=== PATIENT | female | born 1980 | race Caucasian/White ===

== ENCOUNTER 2021-08-12 09:04 | Outpatient (CLI) | payer OTHER, SELFPAY ==
--- NOTE | 2021-08-12 09:15 | FL_ITS ---
Final Report Patient: DARIN STRONG Facility:?[facility] Patient ID:?[id number] Site Patient ID:?[id number]. Site :?[id number] Study:?XRay Hip Right INJJECTION (DR MONREAL TO READ)-08/12/2021 10:33:11 AM Ordering Physician:Ling Desir Final Report: INDICATION: Right hip pain. COMPARISON: None. PROCEDURE: Following a detailed discussion regarding the risks, benefits, and alternatives to the procedure, both written and verbal informed consent were obtained. The patient was positioned supine on the fluoroscopy table. An appropriate site for needle entry was marked on the skin using a metal forceps and fluoroscopy. A timeout was performed according to protocol. The skin was prepped and draped in the usual sterile fashion. 1% lidocaine was administered for local anesthesia. Under fluoroscopic guidance, a 22 gauge needle was advanced into the right hip joint. Needle position was confirmed with the injection of a small amount of iodinated contrast. A mixture of 80 milligrams of Depo-Medrol and 5 cc of 1 percent lidocaine ws injected into the joint. The needle was removed and hemostasis was achieved at the skin puncture site. Patient tolerated the procedure well without immediate complication. Fluoroscopy time: 16 seconds. One images were stored. IMPRESSION: Successful uneventful fluoroscopic-guided right hip therapeutic injection. Dictated by Harrison Monreal MD @ 08/12/2021 10:39:48 AM (Electronic Signature)
== END 2021-08-12 09:05 | disposition home or self-care (01) ==
LOC: RAD 09:06
PROVIDERS: PCP Family Medicine; Visit Provider Orthopaedic Surgery Sports Medicine
DX: M25.551 Pain in right hip (principal); M16.11 Unilateral primary osteoarthritis, right hip
CPT/HCPCS: 20610; 77002; Q9966

== ENCOUNTER 2021-10-01 07:51 | Outpatient (CLI) | payer OTHER, SELFPAY ==
--- NOTE | 2021-10-01 08:15 | CRLHL7_ITS ---
For Patients: As a result of the Century Cures Act, medical imaging exams and procedure reports are released immediately into your electronic medical record. You may view this report before your referring provider. If you have questions, please contact your health care provider. Indication: LT HIP OSTEOARTHRITIS Procedure : Informed consent was obtained. The site was marked. Time-out was performed. The skin of the left hip was cleansed with ChloraPrep. A sterile drape was placed. 8 cc of 1 percent lidocaine was administered for superficial anesthesia. Subsequently a 22 gauge spinal needle was introduced into the left hip joint under intermittent fluoroscopic guidance. Injection of 7 cc 1 percent lidocaine and 2 cc of 40 milligrams/cc Depo-Medrol then performed. The needle was removed and hemostasis achieved with direct pressure. A dressing was placed. The patient tolerated the procedure well without immediate complication. Total fluoroscopy time 22 seconds. Impression: Successful fluoroscopically guided left hip injection with 80 milligrams Depo-Medrol. Dictated by Osman Ramirez MD @ 10/01/2021 9:11:03 AM (Electronically Signed)
== END 2021-10-01 07:52 | disposition home or self-care (01) ==
LOC: RAD 07:52
PROVIDERS: PCP Family Medicine; Visit Provider Orthopaedic Surgery Sports Medicine
DX: M16.12 Unilateral primary osteoarthritis, left hip (principal)
CPT/HCPCS: 20610; 77002; J1030; Q9966

== ENCOUNTER 2021-12-29 16:27 | Outpatient (CLI) | payer OTHER, SELFPAY | END 2021-12-29 16:28 | disposition home or self-care (01) | PROVIDERS: PCP Family Medicine; Visit Provider Family Medicine | DX: S49.92XA Unspecified injury of left shoulder and upper arm, initial encounter (principal); V43.52XA Car driver injured in collision with other type car in traffic accident, initial encounter; Y92.410 Unspecified street and highway as the place of occurrence of the external cause | CPT/HCPCS: A0425; A0427 ==

== ENCOUNTER 2021-12-29 16:55 | Emergency (ER) | payer OTHER, SELFPAY ==
[2021-12-29] VITALS (14 sets, daily range): BP systolic 126–143; BP diastolic 67–98; PULSE 63–85; TEMP 36.6; O2SAT 95–99; BMI 20.6
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
[2021-12-29] MEDS: KETOROLAC 15 MG/ML inj IVP (18:21)
== END 2021-12-29 19:06 | disposition home or self-care (01) ==
PROVIDERS: Emergency Provider Family Medicine; PCP Family Medicine
DX: S20.212A Contusion of left front wall of thorax, initial encounter (principal); S70.12XA Contusion of left thigh, initial encounter; S70.11XA Contusion of right thigh, initial encounter; V43.52XA Car driver injured in collision with other type car in traffic accident, initial encounter; Y93.9 Activity, unspecified; Y99.9 Unspecified external cause status
CPT/HCPCS: 71250; 72170; 96374; 99284; J1885

== ENCOUNTER 2022-02-02 07:28 | Outpatient (CLI) | payer OTHER, SELFPAY | END 2022-02-02 07:29 | disposition home or self-care (01) | LOC: INJ CL 07:29 | PROVIDERS: PCP Family Medicine; Visit Provider Family Medicine | DX: M16.12 Unilateral primary osteoarthritis, left hip (principal); M25.552 Pain in left hip | CPT/HCPCS: 20610; 77002; J0702; Q9966 ==

== ENCOUNTER 2024-05-04 23:15 | Outpatient (CLI) | payer OTHER, SELFPAY | END 2024-05-04 23:16 | disposition home or self-care (01) | LOC: AMB 05-07 10:38 | PROVIDERS: PCP Family Medicine; Visit Provider Emergency Medicine | DX: T43.592A Poisoning by other antipsychotics and neuroleptics, intentional self-harm, initial encounter (principal); Y92.039 Unspecified place in apartment as the place of occurrence of the external cause | CPT/HCPCS: A0425; A0427 ==

== ENCOUNTER 2024-05-04 23:34 | Emergency (ER) | payer OTHER, SELFPAY ==
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
--- OUTSIDE RECORDS SUMMARY | 2024-05-04 23:36 | XMS_ITS | Clinical Summary ---
Author Organization [facility] Address [address] [place] [address] Care Team Providers Care Director Of Reservations Name Role Phone Unavailable Primary Care Provider Unavailabl e Source Comments Patient records contain information from all sites at [facility]. For routine questions regarding patient records, call [phone] during business hours, M-F 8:00 AM - 5:00 PM Central Time. Record requests for emergency care only can be directed to [phone] at any time.[facility] Allergies Active Allergy Reactions Criticality Noted Date Comments Amoxicillin Hives only, no other systemic symptoms,Hives (Reselect Reaction) 10/26/2022 Penicillin allergy skin testing is negative on 10/26/22. Avoid amoxicillin, ampicillin, and cephalosporins. May use other penicillins. See allergy note 10/26/22 for surgical option. Penicillin allergy skin testing is negative on 10/26/22. Avoid amoxicillin, ampicillin, and cephalosporins. May use other penicillins. See allergy note 10/26/22 for surgical option. Aspirin Hives (Reselect Reaction) 06/14/2006 Cephalexin Hives only, no other systemic symptoms,Hives (Reselect Reaction) 12/14/2010 Penicillin allergy skin testing is negative on 10/26/22. Avoid amoxicillin, ampicillin, and cephalosporins. May use other penicillins. See allergy note 10/26/22 for surgical option. Penicillin allergy skin testing is negative on 10/26/22. Avoid amoxicillin, ampicillin, and cephalosporins. May use other penicillins. See allergy note 10/26/22 for surgical option. Medications cholecalciferol (VITAMIN D3) 50 mcg (2,000 Unit) capsule Take 2,000 Units by mouth daily. 2 Active albuterol 90 mcg/actuation inhaler Inhale 2 puffs 4 (four) times a day as needed. 2 Active celecoxib (CeleBREX) 200 mg capsule Take 1 capsule (200 mg total) by mouth 2 (two) times a day. 60 capsule 11/08/2022 9:49 AM CDT 3 Active acetaminophen (TYLENOL) 500 mg tablet Take 2 tablets (1,000 mg total) by mouth every 6 (six) hours as needed for pain (Do not exceed 4000 mg per day from all sources.). 100 tablet 2 3 Active Additional Information Patient taking differently:1,000 mg oralAs needed, pain, Do not exceed 4000 mg per day from all sources., Reported on 04/11/2023 aspirin 81 mg chewable tablet Chew 1 tablet (81 mg total) 2 (two) times a day with meals for 42 days. Recommended to minimize risk of blood clot. 108 tablet 01/05/2023 2:24 PM PRINCIPAL SECRETARY 3 Active oxyCODONE (ROXICODONE) 5 mg immediate release tabletIndicatio ns:Acute Pain Exception Take 1 tablet (5 mg total) by mouth every 4 (four) hours as needed for severe pain or score 7-10 of 10 Indication: Acute Pain Exception. 30 tablet 01/05/2023 2:24 PM PRINCIPAL SECRETARY 3 Active traMADoL (ULTRAM) 50 mg tabletIndicatio ns:Acute Pain Exception Take 1 tablet (50 mg total) by mouth every 6 (six) hours as needed for moderate pain or score 4-6 of 10 Indications: Acute Pain Exception. 20 tablet 01/05/2023 2:24 PM PRINCIPAL SECRETARY 3 Active prochlorperazin e (COMPAZINE) 5 mg tablet Take 1 tablet (5 mg total) by mouth every 6 (six) hours as needed for nausea or vomiting. 20 tablet 01/05/2023 2:24 PM PRINCIPAL SECRETARY 3 Active LORazepam (ATIVAN) 0.5 mg tablet Take 0.5 mg by mouth at bedtime as needed. 4 Active gabapentin (NEURONTIN) 300 mg capsule Take 1 capsule by mouth at bedtime. Hasn't started yet 04-11-23 4 Active azithromycin (ZITHROMAX) 500 mg tablet Take 500 mg by mouth as needed. Prior to dental 3 Active minocycline (MINOCIN,DYNACI N) 100 mg capsule Take 100 mg by mouth every 12 (twelve) hours. 4 Active clindamycin (CLEOCIN T) 1 % gel Apply topically 2 (two) times a day. 4 Active citalopram (CeleXA) 10 mg tablet Take 20 mg by mouth daily. 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, 1994 Nicotine Dependence Unspecified 12/03/2008 Anxiety Generalized Disorder 06/14/2006 Family History Medical History Relation Name Comments Asthma Father Travis Diabetes Father Travis Hyperlipidemia Father Travis Hypertension Father Travis Arthritis Mother Sofía Hyperlipidemia Mother Sofía Hypertension Mother Sofía Lymphoma Mother Sofía Relation Name Status Comments Father Travis Mother Sofía Social History Tobacco Use Types Packs/Day Years Used Date Smoking Tobacco: Former Cigarettes 0.5 25.5 0 02/14/1997 - 08/23/2022 Smokeless Tobacco: Never Tobacco Cessation:Counseling Given: Not Answered Alcohol Use Standard Drinks/Week Comments Yes 4 (1 standard drink = 0.6 oz pur e alcohol) Humiliation, Afraid, Rape, and Kick questionnair e Answer Date Recorded Within the last year, have y ou been afraid of your partner or ex-partner? No 07/26/2022 Within the last year, have y ou been humiliated or emotionally abused in other ways by your partner or ex-partner? No Within the last year, have y ou been kicked, hit, slapped, or otherwise physically hurt by your partner or ex-partner? No 07/26/2022 Within the last year, have y ou been raped or forced to have any kind of sexual activity by your partner or ex-partner? No 07/26/2022 Overall Financial Resource Strain (CARDIA) Answe r Date Recorded How hard is it for you to pa y for the very basics like food, housing, medical care, and heating? Not hard at all 07/26/2022 Exercise Vital Sign Answer Date Recorde d On average, how many days pe r week do you engage in moderate to strenuous exercise (like a brisk walk)? Patient declined On average, how many minutes do you engage in exercise at this level? Patient declined 07/26/2022 Hunger Vital Sign Answer Date Recorded Within the past 12 months, y ou worried that your food would run out before you got the money to buy more. Never true 07/27/19 Within the past 12 months, t he food you bought just didn't last and you didn't have money to get more. Never true 07/26/2022 PRAPARE - Transportation Answer Date Re corded In the past 12 months, has l ack of transportation kept you from medical appointments or from getting medications? No 07/15 In the past 12 months, has l ack of transportation kept you from meetings, work, or from getting things needed for daily living? No 07/26/2022 Nutrition Answer Date Recorded Nutrition: EVOO Fat Source Unknown 07/26 On average, how many serving s of fruits and vegetables do you eat per day (serving size is equal to 1 cup or approximately the size of a tennis ball)? 3-5 07/26/2022 Dental Answer Date Recorded Dental: Regular Dentist Yes 07/27/19 Employment Answer Date Recorded Employment status Working with temporary restric tions 07/26/2022 Housing Stability Answer Date Recorded What is your living situation today? I have a [facility] place to live 07/26/2022 Comments No Sex and Gender Information Value Date Recorded Sex Assigned at Female 07/26/2022 7:48 PM CDT Legal Sex Female 3:43 PM PRINCIPAL SECRETARY Gender Identity Female 07/26/2022 7:48 PM CDT Sexual Orientation Straight 07/26/2022 7: 48 PM CDT Last Filed Vital Signs Vital Sign Reading Time Taken Comments Blood Pressure 123/86 01/05/2023 3:00 PM PRINCIPAL SECRETARY Pulse 81 01/05/2023 3:00 PM PRINCIPAL SECRETARY Temperature 36.7 C (98.1 F) 01/05/2023 12:00 PM PRINCIPAL SECRETARY Respiratory Rate 12 01/05/2023 1:00 PM PRINCIPAL SECRETARY Oxygen Saturation 91% 01/05/2023 3:00 PM PRINCIPAL SECRETARY Inhaled Oxygen Concentration - - Weight 58.9 kg (129 lb 13.6 oz) 01/05/2023 6:15 AM PRINCIPAL SECRETARY Height 163.5 cm (5' 4.37) 01/05/2023 6:15 AM CS T Body Mass Index 22.03 01/05/2023 6:15 AM PRINCIPAL SECRETARY Plan of Treatment Health Maintenance Due Date Last Done Comments CT Colonography 1978 Cologuard 1978 Colonoscopy 1978 Colorectal Cancer Screening 1978 FIT 1978 HIV Screening 1978 Hepatitis C Screening 1978 Lipid (Cholesterol) Screening 1978 IPV Vaccines (3 of 3 - 4-dose series) 10/29/1983 04/28/1983, 04/24/1980 Hepatitis B Vaccines (1 of 3 - 19+ 3-dose series) 1997 DTaP,Tdap,and Td Vaccines (2 - Td or Tdap) 10/01/2020 10/01/2010 COVID-19 Vaccine ( season) 2023 02/10/2022, 03/02/2021, 08/28/2020, Additional history exists Influenza Vaccine (#1) 2023 , 11/04/2020, 11/07/2019 Depression Screening (Annual PHQ-2) 02/15/2024 Mammogram 08/30/2024 08/31/2023, 08/14, 11/03/2020, Additional history exists Fasting Glucose for Diabetes Screening 04/05/2026 04/05/2023, 12/31/2022, 10/26/2022, Additional history exists HPV Vaccines Aged Out No longer eligi ble based on patient's age to complete this topic Pneumococcal vaccine (0-49 years) Aged Out No longer eligible based on patient's age to complete this topic Medical Devices Implanted Type Area [employer] Trainee Device Identifier Shelf Expiration Date Model / Serial / Lot Shll Acet Trd Ii Mhl 52e - [id number] Implanted:Qty : 1 on 11/08/2022 by Walker Main M.D. at [facility] Hip Implant Right: Hip Caulfield 09/22/2027 709-04-52 E / / [id number] Lnr X3 Sangeetha 40 - [id number] Implanted:Qty : 1 on 11/08/2022 by Walker Main M.D. at [facility] Hip Implant Right: Hip Caulfield 09/12/2027 723-00-40 E / / [id number] Hip Stm Ins Hofst Sz2 36x99 - [id number] Implanted:Qty : 1 on 11/08/2022 by Walker Main M.D. at [facility] Hip Implant Right: Hip Caulfield 06/16/2027 3614-8929 / / [id number] Scrw Hex 6.5x20 - [id number] Implanted:Qty : 1 on 11/08/2022 by Walker Mian M.D. at [facility] Hip Implant Right: Hip Edmundo 07/16/2027 0046-9916 / / [id number] Scrw Hex 6.5x15 - [id number] Implanted:Qty : 1 on 11/08/2022 by Walker Main M.D. at [facility] Hip Implant Right: Hip Caulfield 05/30/2027 1929-5594 / / [id number] Hip Stm Slv V40 +0 - [id number] Implanted:Qty : 1 on 11/08/2022 by Walker Main M.D. at [facility] Hip Implant Right: Hip Edmundo 08/30/2027 6519-T-10 0 / / [id number] Fem Hd Blx +0x40 - [id number] Implanted:Qty : 1 on 11/08/2022 by Walker Main M.D. at [facility] Hip Implant Right: Hip Caulfield 09/17/2027 6519-1-04 0 / / [id number] Shll Acet Trd Chl 52e - [id number] Implanted:Qty : 1 on 01/05/2023 by Walker Main M.D. at [facility] Hip Implant Left: Hip Caulfield [id number] 08/31/2027 702-04-52 E / / [id number] Scrw Hex 6.5x20 - [id number] Implanted:Qty : 1 on 01/05/2023 by Walker Main M.D. at [facility] Hip Implant Left: Hip Edmundo 08/29/2027 8587-4394 / / [id number] Hip Stm Ins Hofst Sz2 36x99 - [id number] Implanted:Qty : 1 on 01/05/2023 by Walker Main M.D. at [facility] Hip Implant Left: Hip Edmundo 09/23/2027 8586-5494 / / [id number] Fem Hd Blx +0x40 - [id number] Implanted:Qty : 1 on 01/05/2023 by Walker Main M.D. at [facility] Hip Implant Left: Hip Caulfield 10/30/2027 6519-1-04 0 / / [id number] Hip Stm Slv V40 +4 - [id number] Implanted:Qty : 1 on 01/05/2023 by Walker Main M.D. at [facility] Hip Implant Left: Hip Edmundo 11/02/2027 6519-T-20 4 / / [id number] Lnr X3 Sangeetha 40 - [id number] Implanted:Qty : 1 on 01/05/2023 by Walker Main M.D. at [facility] Hip Implant Left: Hip Edmundo 11/04/2027 723-00-40 E / / [id number] Knee Implant-1995 Implanted: (Quantity not on file) Knee Implant Left: Knee Description:Patient stated o nly screws Procedures Procedure Name Priority Date/Time Associated Diagnosis Comments BASIC METABOLIC PANEL, S/P Routine 12/31/2022 9:50 AM PRINCIPAL SECRETARY Primary Osteoarthritis Hip Left Preoperative Exam from Last 3 Months or Most Recently Relevant to Health Maintenance Results * Basic Metabolic Panel (12/31/2022 9:50 AM PRINCIPAL SECRETARY) Potassium, S 4.7 3.6 - 5.2 mmol/L 12/31/2022 10:52 AM PRINCIPAL SECRETARY DTL Sodium, S 138 135 - 145 mmol/L 12/31/2022 10:52 AM PRINCIPAL SECRETARY DTL Chloride, S 100 98 - 107 mmol/L 12/31/2022 10:52 AM PRINCIPAL SECRETARY DTL Bicarbonate, S 26 22 - 29 mmol/L 12/31/2022 10:52 AM PRINCIPAL SECRETARY DTL Anion Gap 12 7 - 15 12/31/2022 10:52 AM PRINCIPAL SECRETARY DTL BUN (Blood Urea Nitrogen), S 13 6 - 21 mg/dL 12/31/2022 10:52 AM PRINCIPAL SECRETARY DTL Creatinine 0.68 0.59 - 1.04 mg/dL 12/31/2022 10:52 AM PRINCIPAL SECRETARY DTL Estimated GFR (eGFR) >90 >=60 mL/min/BSA 12/31/2022 10:52 AM PRINCIPAL SECRETARY DTL Comment: Estimated GFR calculated using the 2020 CKD_EPI creatinine equation. Calcium, Total, S 9.7 8.6 - 10.0 mg/dL 12/31/2022 10:52 AM PRINCIPAL SECRETARY DTL Glucose, S 87 70 - 140 mg/dL 12/31/2022 10:52 AM PRINCIPAL SECRETARY DTL Blood (Blood, Venous) 12/31/2022 9:50 AM PRINCIPAL SECRETARY 12/31/2022 10:35 AM PRINCIPAL SECRETARY [facility] LAB BLOOD ADD-ON Final Result [facility] [address] [place] [address], [facility] DTL [facility] [address] [place] [address] from Last 3 Months or Most Recently Relevant to Health Maintenance Insurance [facility] Advance Directives For more information, please contact: [phone] * Full Code (Latest Code Status on File) Date Activated Date Inactivated Comments 01/05/2023 1:10 PM 01/05/2023 7:15 PM Question Answer Comments Full Code: Not Discussed Due to: Patient not available * Full Code Date Activated Date Inactivated Comments 11/08/2022 2:41 PM 11/08/2022 7:48 PM Question Answer Comments Full Code: Not Discussed Due to: Patient not available
[2024-05-04 23:49] VITALS: O2SAT 95
[2024-05-04 23:50] VITALS: BP 116/82; PULSE 75; PULSE 79; RESP 16; RESP 18; TEMP 36.4; O2SAT 94; O2SAT 95
[2024-05-04 23:51] VITALS: PULSE 83; RESP 16; O2SAT 95
[2024-05-04] MEDS: 0.9 % SODIUM CHLORIDE 1000 ml 1,000 ML IV (23:55)
[2024-05-04 23:56] LABS: HCO3 VBG 25 mmol/L (21-28); Lactate Sepsis w/Reflex* 2.6 mmol/L (0.5-1.9); PCO2 VBG 34 mmHG (40-50); PO2 VBG 40.2 mmHG (25-47); pH VBG 7.463 (7.32-7.43)
[2024-05-04 23:57] LABS: Basophils Absolute Auto 0.03 K/uL (0.00-0.30); Basophils Percent Auto 0.3 % (0.0-3.0); Eosinophils Absolute Auto 0.31 K/uL (0.00-0.50); Hematocrit 41.4 % (33.0-51.0); Hemoglobin* 13.8 gm/dL (12.0-16.0); Immature Granulocytes Abs Auto 0.07 K/uL (0.00-0.30); Immature Granulocytes Pct Auto 0.7 %; Lymphocytes Absolute Auto 3.97 K/uL (0.90-2.90); Lymphocytes Percent Auto 38.3 % (20-44); Mean Corpuscular HGB Conc 33 gm/dL (32-36); Mean Corpuscular Hemoglobin 32 pg (26-34); Mean Corpuscular Volume 97 fL (80-100); Neutrophils Absolute Auto 5.16 K/uL (1.7-7.0); Neutrophils Percent Auto 49.7 % (42.0-72.0); Platelet Count* 298 K/uL (140-440); RDW Coefficient of Variation % 12.8 % (11.5-15.5); Red Blood Count 4.26 m/uL (4.00-5.20); White Blood Count* 10.37 K/uL (4.50-11.00)
[2024-05-05] VITALS (46 sets, daily range): BP systolic 91–114; BP diastolic 58–78; PULSE 65–96; RESP 12–18; O2SAT 93–99
[2024-05-05 00:11] LABS: Slide Review Reflex No
--- NOTE | 2024-05-05 00:13 | ED.GENADULT ---
HPI - General Adult General Chief complaint: Overdose <Alcides Reilly MD - Last Filed: 05/05/24 08:04> Stated complaint: Combative <Alcides Reilly MD - Last Filed: 05/05/24 08:04> Time Seen by Provider: 05/05/24 00:13 <Alcides Reilly MD - Last Filed: 05/05/24 08:04> History of Present Illness HPI narrative: 43-year-old female brought to the ER today from her home for evaluation of an intentional overdose History from the patient's sister, Philomena is that she has struggled with mental health problems for quite a few years. Although they live in a fairly close family, the patient has always been somewhat guarded about her mental health problems and diagnoses so Talia does not really know more about it than that. Talia knows that she has been seen a doctor or psychiatrist and has been prescribed meds for sleep. Also, Philomena think she has been seeing a therapist. She has never tried to commit suicide before, as far as Talia knows. Tonight, the patient sent a text message to the their mother that the patient had taken some meds in hopes she would not wake up. The patient's mother contacted Talia (the who is the patient's sister) and Philomena went to her house. They had trouble getting in but she did find the open bottle of Seroquel. The patient also been drinking alcohol. Per EMS they when they brought the patient in the she apparently had a single low blood pressure measurement of 70/50. Patient was agitated and upset because her sister was there and she did not want to come to the ER but she ultimately came without requiring restraints or administration of sedating medications Per the patient, she does say that she took the medication and some alcohol tonight because she ?wanted to sleep. When asked her why she wanted to sleep, she is a bit vague. She says ?life. ?. It is unclear what her life stressors are. She will be more specific than that. It sounds like she has trouble with sleep from time to time and has a prescription for Seroquel that she can use. She is prescribed 1 tablet q.h.s. p.r.n.-25 mg. She is not sure why but tonight she took 15 tablets. She does not say that she was trying to commit suicide. Later, the patient does report that she sent a text to her mother telling her that she loved her, in case she does not wake up in the morning. It sounds like the patient had at least an idea that the overdose could be dangerous. She was also drinking alcohol tonight. She can not really tell me how much she had. She says she does not normally drink alcohol. She has never been diagnosed with alcoholism and has never been through treatment. She denies other ingestions or other recreational drugs. <Alcides Reilly MD - Last Filed: 05/05/24 08:04> Related Data Home medications: Home Medications ?Medication ?Instructions ?Recorded ?Confirmed No Known Home Medications 09/22/21 09/22/21 <Alcides Reilly MD - Last Filed: 05/05/24 08:04> Allergies/adverse reactions: Allergies Allergy/AdvReac Type Severity Reaction Status Date / Time aspirin AdvReac Unknown Verified 05/04/24 23:54 Cephalosporins AdvReac Unknown Verified 05/04/24 23:54 Penicillins AdvReac Unknown Verified 05/04/24 23:54 <Alcides Reilly MD - Last Filed: 05/05/24 08:04> [facility] Medical History: Medical History (Updated 05/05/24 @ 08:04 by Alcides Reilly MD) Patellofemoral arthralgia of right knee ?M25.561 - Pain in right knee (ICD-10) Localized osteoarthrosis of right hip ?M16.11 - Unilateral primary osteoarthritis, right hip (ICD-10) Osteoarthritis of right knee ?M17.11 - Unilateral primary osteoarthritis, right knee (ICD-10) Anxiety ?F41.9 - Anxiety disorder, unspecified (ICD-10) <Alcides Reilly MD - Last Filed: 05/05/24 08:04> Surgical History: Surgical History (Reviewed 09/22/21 @ 09:45 by Lorena Trujillo [facility]) History of left knee surgery History of nephrectomy, right <Alcides Reilly MD - Last Filed: 05/05/24 08:04> Social History: Social History (Updated 09/22/21 @ 09:45 by Lorena Trujillo ~ [facility], [facility]) Smoking Status: Current every day smoker What tobacco products do you use: cigarettes Smoking packs per day: 0.5 Smoking cigarettes per day: 10.0 Do you use any of these nicotine containing products: None Second hand tobacco smoke exposure: No How often do you have a drink containing alcohol: 2-3 times a week How many standard drinks containing alcohol do you have on a typical day: 3 or 4 How often do you have six or more drinks on one occasion: Never AUDIT-C Alcohol total score: 4 Non-prescribed substance use: denies use <Alcides Reilly MD - Last Filed: 05/05/24 08:04> Exam Narrative: Exam Narrative: Constitutional: Appears well-developed and well-nourished. Awake, but reports feeling sleepy. She is able answer some simple questions. She is also very vague and somewhat evasive when discussing her mental health problems, recent stressors, and what led up to the overdose tonight. She is also vague about the true intent of her overdose. It sounds like she knew the amount of alcohol and pills she took might be dangerous and life-threatening but at the same time she says she ?just wanted to sleep. ? HENT: Head: Atraumatic. Nose: Nose normal. Mouth/Throat: Oral mucosa is clear and moist. no trismus. Pharynx normal. Tonsils symmetric. No tonsillar enlargement, erythema, or exudate. Eyes: Conjunctivae normal. EOM normal. Pupils equal, round, and reactive to light. No scleral icterus. Neck: Normal range of motion. Neck supple. No tracheal deviation present. Cardiovascular: Normal rate, regular rhythm. No gallop. No friction rub. No murmur heard. Symmetric radial artery pulses Pulmonary/Chest: Effort normal. No stridor. No respiratory distress. No wheezes. No rales. No rhonchi . No tenderness. Abdominal: Soft. No distension. No mass. No tenderness. No rebound. No guarding. Musculoskeletal: RUE: Normal range of motion. No tenderness. No deformity LUE: Normal range of motion. No tenderness. No deformity RLE: Normal range of motion. No edema. No tenderness. No deformity LLE: Normal range of motion. No edema. No tenderness. No deformity Neurological: Alert and oriented to person, place, and time. Normal strength. CN II-VII intact. No sensory deficit. GCS eye subscore is 4. GCS verbal subscore is 5. GCS motor subscore is 6. Normal coordination Skin: Skin is warm and dry. No rash noted. No pallor. Normal capillary refill. Psychiatric: Flat affect. Limited because she is drowsy, also evasive. At times very tearful , for instance when we discuss the text to her mom. Also very tearful when talking about her sister Talia. Says that she took the pills because she ?just wanted to sleep. However she also sent a text to her mother so that her mother would be reminded that she loves her, in the event that she does not wake up in the morning. Her sister Talia also says that the patient texted that the patient was hoping she would not wake up. Denies regular alcohol use. Denies other drug use. <Alcides Reilly MD - Last Filed: 05/05/24 08:04> Const: Vital Signs, click to edit/add: Vital Signs - 24 hr 05/04/24 23:49 05/04/24 23:50 05/04/24 23:50 Temperature 97.5 F L Pulse Rate 79 Pulse Rate [Pulse Oximeter] 75 Respiratory Rate 18 16 Blood Pressure 116/82 Blood Pressure [Ri ght Upper Arm] 116/82 Pulse Oximetry 95 94 95 Oxygen Delivery Me thod Room Air 05/04/24 23:51 05/05/24 00:00 05/05/24 00:02 Temperature Pulse Rate 83 76 80 Pulse Rate [Pulse Oximeter] Respiratory Rate 16 14 14 Blood Pressure 111/78 Blood Pressure [Ri ght Upper Arm] Pulse Oximetry 95 93 96 Oxygen Delivery Me thod 05/05/24 00:02 05/05/24 00:02 05/05/24 00:15 Temperature Pulse Rate 80 80 75 Pulse Rate [Pulse Oximeter] Respiratory Rate 14 14 14 Blood Pressure 111/78 111/78 Blood Pressure [Ri ght Upper Arm] Pulse Oximetry 96 96 96 Oxygen Delivery Me thod 05/05/24 00:16 05/05/24 00:30 05/05/24 00:32 Temperature Pulse Rate 75 78 87 Pulse Rate [Pulse Oximeter] Respiratory Rate 16 14 18 Blood Pressure 108/70 114/78 Blood Pressure [Ri ght Upper Arm] Pulse Oximetry 98 94 97 Oxygen Delivery Me thod 05/05/24 00:45 05/05/24 00:47 05/05/24 00:54 Temperature Pulse Rate 77 91 96 Pulse Rate [Pulse Oximeter] Respiratory Rate 17 16 Blood Pressure 105/67 Blood Pressure [Ri ght Upper Arm] Pulse Oximetry 96 98 99 Oxygen Delivery Me thod 05/05/24 01:00 05/05/24 01:04 05/05/24 01:15 Temperature Pulse Rate 78 81 79 Pulse Rate [Pulse Oximeter] Respiratory Rate 16 14 Blood Pressure 112/68 Blood Pressure [Ri ght Upper Arm] Pulse Oximetry 96 97 96 Oxygen Delivery Me thod 05/05/24 01:30 05/05/24 01:45 05/05/24 02:00 Temperature Pulse Rate 76 73 72 Pulse Rate [Pulse Oximeter] Respiratory Rate 12 15 Blood Pressure Blood Pressure [Ri ght Upper Arm] Pulse Oximetry 97 95 94 Oxygen Delivery Me thod 05/05/24 02:02 05/05/24 02:15 05/05/24 02:30 Temperature Pulse Rate 74 73 72 Pulse Rate [Pulse Oximeter] Respiratory Rate 16 12 12 Blood Pressure 91/58 L Blood Pressure [Ri ght Upper Arm] Pulse Oximetry 94 95 94 Oxygen Delivery Me thod 05/05/24 02:33 05/05/24 02:34 05/05/24 02:45 Temperature Pulse Rate 81 68 67 Pulse Rate [Pulse Oximeter] Respiratory Rate 16 16 16 Blood Pressure 106/69 Blood Pressure [Ri ght Upper Arm] Pulse Oximetry 96 96 95 Oxygen Delivery Me thod 05/05/24 03:00 05/05/24 03:02 05/05/24 03:15 Temperature Pulse Rate 74 72 70 Pulse Rate [Pulse Oximeter] Respiratory Rate 13 16 Blood Pressure 104/74 Blood Pressure [Ri ght Upper Arm] Pulse Oximetry 95 96 95 Oxygen Delivery Me thod 05/05/24 03:30 05/05/24 03:45 05/05/24 04:00 Temperature Pulse Rate 72 80 77 Pulse Rate [Pulse Oximeter] Respiratory Rate Blood Pressure Blood Pressure [Ri ght Upper Arm] Pulse Oximetry 96 97 95 Oxygen Delivery Me thod 05/05/24 04:02 05/05/24 04:15 05/05/24 04:30 Temperature Pulse Rate 96 72 67 Pulse Rate [Pulse Oximeter] Respiratory Rate 18 Blood Pressure 113/77 Blood Pressure [Ri ght Upper Arm] Pulse Oximetry 96 94 94 Oxygen Delivery Me thod 05/05/24 04:45 05/05/24 05:00 05/05/24 05:02 Temperature Pulse Rate 65 66 89 Pulse Rate [Pulse Oximeter] Respiratory Rate Blood Pressure 111/70 Blood Pressure [Ri ght Upper Arm] Pulse Oximetry 95 95 97 Oxygen Delivery Me thod 05/05/24 05:15 05/05/24 05:30 05/05/24 05:45 Temperature Pulse Rate 66 69 70 Pulse Rate [Pulse Oximeter] Respiratory Rate 16 Blood Pressure Blood Pressure [Ri ght Upper Arm] Pulse Oximetry 95 95 95 Oxygen Delivery Me thod 05/05/24 06:00 05/05/24 06:02 05/05/24 06:15 Temperature Pulse Rate 73 72 77 Pulse Rate [Pulse Oximeter] Respiratory Rate Blood Pressure 105/74 Blood Pressure [Ri ght Upper Arm] Pulse Oximetry 95 96 97 Oxygen Delivery Me thod 05/05/24 06:30 05/05/24 06:45 05/05/24 07:00 Temperature Pulse Rate 71 68 72 Pulse Rate [Pulse Oximeter] Respiratory Rate Blood Pressure Blood Pressure [Ri ght Upper Arm] Pulse Oximetry 96 97 96 Oxygen Delivery Me thod 05/05/24 07:02 05/05/24 07:15 05/05/24 07:30 Temperature Pulse Rate 70 74 68 Pulse Rate [Pulse Oximeter] Respiratory Rate Blood Pressure 114/77 Blood Pressure [Ri ght Upper Arm] Pulse Oximetry 97 95 98 Oxygen Delivery Me thod 05/05/24 07:45 Temperature Pulse Rate 70 Pulse Rate [Pulse Oximeter] Respiratory Rate Blood Pressure Blood Pressure [Ri ght Upper Arm] Pulse Oximetry 96 Oxygen Delivery Me thod <Alcides Reilly MD - Last Filed: 05/05/24 08:04> Vital Signs, click to edit/add: Vital Signs - 24 hr 05/04/24 23:49 05/04/24 23:50 05/04/24 23:50 Temperature 97.5 F L Pulse Rate 79 Pulse Rate [Pulse Oximeter] 75 Respiratory Rate 18 16 Blood Pressure 116/82 Blood Pressure [Ri ght Upper Arm] 116/82 Pulse Oximetry 95 94 95 Oxygen Delivery Me thod Room Air 05/04/24 23:51 05/05/24 00:00 05/05/24 00:02 Temperature Pulse Rate 83 76 80 Pulse Rate [Pulse Oximeter] Respiratory Rate 16 14 14 Blood Pressure 111/78 Blood Pressure [Ri ght Upper Arm] Pulse Oximetry 95 93 96 Oxygen Delivery Me thod 05/05/24 00:02 05/05/24 00:02 05/05/24 00:15 Temperature Pulse Rate 80 80 75 Pulse Rate [Pulse Oximeter] Respiratory Rate 14 14 14 Blood Pressure 111/78 111/78 Blood Pressure [Ri ght Upper Arm] Pulse Oximetry 96 96 96 Oxygen Delivery Me thod 05/05/24 00:16 05/05/24 00:30 05/05/24 00:32 Temperature Pulse Rate 75 78 87 Pulse Rate [Pulse Oximeter] Respiratory Rate 16 14 18 Blood Pressure 108/70 114/78 Blood Pressure [Ri ght Upper Arm] Pulse Oximetry 98 94 97 Oxygen Delivery Me thod 05/05/24 00:45 05/05/24 00:47 05/05/24 00:54 Temperature Pulse Rate 77 91 96 Pulse Rate [Pulse Oximeter] Respiratory Rate 17 16 Blood Pressure 105/67 Blood Pressure [Ri ght Upper Arm] Pulse Oximetry 96 98 99 Oxygen Delivery Me thod 05/05/24 01:00 05/05/24 01:04 05/05/24 01:15 Temperature Pulse Rate 78 81 79 Pulse Rate [Pulse Oximeter] Respiratory Rate 16 14 Blood Pressure 112/68 Blood Pressure [Ri ght Upper Arm] Pulse Oximetry 96 97 96 Oxygen Delivery Me thod 05/05/24 01:30 05/05/24 01:45 05/05/24 02:00 Temperature Pulse Rate 76 73 72 Pulse Rate [Pulse Oximeter] Respiratory Rate 12 15 Blood Pressure Blood Pressure [Ri ght Upper Arm] Pulse Oximetry 97 95 94 Oxygen Delivery Me thod 05/05/24 02:02 05/05/24 02:15 05/05/24 02:30 Temperature Pulse Rate 74 73 72 Pulse Rate [Pulse Oximeter] Respiratory Rate 16 12 12 Blood Pressure 91/58 L Blood Pressure [Ri ght Upper Arm] Pulse Oximetry 94 95 94 Oxygen Delivery Me thod 05/05/24 02:33 05/05/24 02:34 05/05/24 02:45 Temperature Pulse Rate 81 68 67 Pulse Rate [Pulse Oximeter] Respiratory Rate 16 16 16 Blood Pressure 106/69 Blood Pressure [Ri ght Upper Arm] Pulse Oximetry 96 96 95 Oxygen Delivery Me thod 05/05/24 03:00 05/05/24 03:02 05/05/24 03:15 Temperature Pulse Rate 74 72 70 Pulse Rate [Pulse Oximeter] Respiratory Rate 13 16 Blood Pressure 104/74 Blood Pressure [Ri ght Upper Arm] Pulse Oximetry 95 96 95 Oxygen Delivery Me thod 05/05/24 03:30 05/05/24 03:45 05/05/24 04:00 Temperature Pulse Rate 72 80 77 Pulse Rate [Pulse Oximeter] Respiratory Rate Blood Pressure Blood Pressure [Ri ght Upper Arm] Pulse Oximetry 96 97 95 Oxygen Delivery Me thod 05/05/24 04:02 05/05/24 04:15 05/05/24 04:30 Temperature Pulse Rate 96 72 67 Pulse Rate [Pulse Oximeter] Respiratory Rate 18 Blood Pressure 113/77 Blood Pressure [Ri ght Upper Arm] Pulse Oximetry 96 94 94 Oxygen Delivery Me thod 05/05/24 04:45 05/05/24 05:00 05/05/24 05:02 Temperature Pulse Rate 65 66 89 Pulse Rate [Pulse Oximeter] Respiratory Rate Blood Pressure 111/70 Blood Pressure [Ri ght Upper Arm] Pulse Oximetry 95 95 97 Oxygen Delivery Me thod 05/05/24 05:15 05/05/24 05:30 05/05/24 05:45 Temperature Pulse Rate 66 69 70 Pulse Rate [Pulse Oximeter] Respiratory Rate 16 Blood Pressure Blood Pressure [Ri ght Upper Arm] Pulse Oximetry 95 95 95 Oxygen Delivery Me thod 05/05/24 06:00 05/05/24 06:02 05/05/24 06:15 Temperature Pulse Rate 73 72 77 Pulse Rate [Pulse Oximeter] Respiratory Rate Blood Pressure 105/74 Blood Pressure [Ri ght Upper Arm] Pulse Oximetry 95 96 97 Oxygen Delivery Me thod 05/05/24 06:30 05/05/24 06:45 05/05/24 07:00 Temperature Pulse Rate 71 68 72 Pulse Rate [Pulse Oximeter] Respiratory Rate Blood Pressure Blood Pressure [Ri ght Upper Arm] Pulse Oximetry 96 97 96 Oxygen Delivery Me thod 05/05/24 07:02 05/05/24 07:15 05/05/24 07:30 Temperature Pulse Rate 70 74 68 Pulse Rate [Pulse Oximeter] Respiratory Rate Blood Pressure 114/77 Blood Pressure [Ri ght Upper Arm] Pulse Oximetry 97 95 98 Oxygen Delivery Me thod 05/05/24 07:45 Temperature Pulse Rate 70 Pulse Rate [Pulse Oximeter] Respiratory Rate Blood Pressure Blood Pressure [Ri ght Upper Arm] Pulse Oximetry 96 Oxygen Delivery Me thod <Sg Conde MD - Last Filed: 05/05/24 11:25> Course Course ED Course: Patient arrived by EMS and initial labs and EKG were ordered by Dr. Titus. She had had 1 isolated hypotensive blood pressure reading per EMS but since then has been normotensive. Normal sinus rhythm. Dr. Reilly saw the patient when he came on for night supervisor at midnight Nursing staff called [facility]. They advised that the peak effect for Seroquel typically happens about 6 hours after ingestion. We believe the time of ingestion was probably 10 30 or 11. Initial EKG shows a normal sinus rhythm, normal QTC. Poison recommends repeating a 2nd EKG at the 2 hour tin. Also will check other labs such as acetaminophen and salicylate levels. Seroquel can have potential effects including hypotension, decreased mental status, seizures, prolonged QT. <Alcdies Reilly MD - Last Filed: 05/05/24 08:04> Reevaluation(s) Reevaluation #1: Recheck-02 12. Patient sleepy but arousable and able to answer questions. Blood pressure remains stable. <Alcides Reilly MD - Last Filed: 05/05/24 08:04> Reevaluation #2: Recheck-patient is sleeping and rolled over onto her side. Blood pressure cuff went off automatically in gave her reading of 91/68. We recheck patient. She was sleeping but arousable. We repositioned the patient in the cuff and subsequent blood pressure reading was 106/76. I think this isolated lower reading was due to patient and cup positioning. She is not otherwise hypotensive Patient remained hemodynamically stable. <Alcides Reilly MD - Last Filed: 05/05/24 08:04> Reevaluation #3: Recheck-4:00 a.m.. Nurses discussed again with [facility]. At this point we are now approximately 6 hours out from ingestion. If the patient has not developed hypotension, seizure, prolonged QT at this point, poison Center feels that she can be medically cleared. She remains drowsy but arousable. She is not yet awake and cogent enough to really do a good psychiatric assessment. Plan will be to continue to monitor here in the ER and reassess sometime later this morning when she is alert and assessable. <Alcides Reilly MD - Last Filed: 05/05/24 08:04> Consultations Consultation #1: Recheck-remains hemodynamically stable but drowsy. Patient signed over Dr. Conde at 8:00 a.m.-shift change. He will reassess the patient when she is alert enough for a mental health assessment. <Alcides Reilly MD - Last Filed: 05/05/24 08:04> Vital Signs Vital signs: Initial Vital Signs Pulse Oximetry 95 05/04/24 23:49 Vital Signs Pulse Oximetry 95 05/04/24 23:49 Temperature 97.5 F L 05/04/24 23:50 Pulse Rate 70 05/05/24 07:45 Respiratory Rate 16 05/05/24 05:45 Blood Pressure 114/77 05/05/24 07:02 Pulse Oximetry 96 05/05/24 07:45 Oxygen Delivery Method Room Air 05/04/24 23:50 <Alcides Reilly MD - Last Filed: 05/05/24 08:04> Initial Vital Signs Pulse Oximetry 95 05/04/24 23:49 Vital Signs Pulse Oximetry 95 05/04/24 23:49 Temperature 97.5 F L 05/04/24 23:50 Pulse Rate 70 05/05/24 07:45 Respiratory Rate 16 05/05/24 05:45 Blood Pressure 114/77 05/05/24 07:02 Pulse Oximetry 96 05/05/24 07:45 Oxygen Delivery Method Room Air 05/04/24 23:50 <Sg Conde MD - Last Filed: 05/05/24 11:25> Medications Administered Medications: Discontinued Medications Generic Name Dose Route Start Last Admin Trade Name Freq PRN Reason Stop Dose Admin Sodium Chloride 1,000 mls @ 1,000 mls/hr 05/04/24 23:45 05/05/24 00:39 0.9 % Sodium Chloride 1000 Ml IV 05/05/24 00:44 Infused .Q1H [facility] Infusion <Alcides Reilly MD - Last Filed: 05/05/24 08:04> Discontinued Medications Generic Name Dose Route Start Last Admin Trade Name Penny PRN Reason Stop Dose Admin Sodium Chloride 1,000 mls @ 1,000 mls/hr 05/04/24 23:45 05/05/24 00:39 0.9 % Sodium Chloride 1000 Ml IV 05/05/24 00:44 Infused .Q1H [facility] Infusion <Sg Conde MD - Last Filed: 05/05/24 11:25> Medical Decision Making MDM Narrative Medical decision making narrative: 43-year-old female brought to the ER today from her home by EMS after an intentional ingestion of Seroquel (approximately 350 mg) and alcohol at approximately 10:30 a.m. or 11:00 p.m. in 10 to the ingestion is a bit clear and the patient is evasive and intoxication at this time so difficult to get clear handle. However she did send a text to her family telling them that she love them, in the event that she might not wake up in the morning. This suggests that patient was at least thinking about the potential lethal affects of her ingestion, even though when I ask her directly, she says that she was not actually trying to commit suicide. Will need psychiatric reassessment in the morning once she is through the peak of her Seroquel and alcohol intoxication Seroquel can have potential affects including hypotension, seizures, decreased mental status, as well as prolonged QT. poison center recommends repeating a 2nd EKG 2 hours after the 1st an observation tele at least 6 hours out from ingestion. Laboratory workup shows blood alcohol level of 0.05. Tylenol and salicylate levels are undetectable. CBC is normal. Kidney function is normal. Potassium mildly low at 3.3. Calcium normal. Magnesium normal at 1.8. Liver function tests are normal. Initial EKG shows normal sinus rhythm without any ischemia. Normal QTC. Second EKG obtained at 1:32 a.m., approximately 2 hours after the 1st EKG and roughly 3 hours after ingestion shows sinus rhythm. No QT lip prolongation. No QRS widening. No ischemia. No arrhythmia. black off worker shows sinus rhythm There was reported hypotension on her EMS blood pressure reading but has been normotensive since arrival here in the ER. She did receive 1 L of IV fluids. She was observed here in the ER until 4:00 a.m. and remained with normal blood pressure and pulse. QT remain normal. She was drowsy but protecting her airway. No seizure activity. At this point she was medically cleared (past the point of high risk for severe complications of Seroquel ingestion) in consultation with the [place] [facility]. At this point with reasonable clinical confidence that think patient is this medically clear for mental health evaluation when she is awake enough to be conversant Of note, during initial evaluation, patient was not able ride urine sample (missed the collection device). Urine drus screen and UPT have not been obtained yet. <Alcides Reilly MD - Last Filed: 05/05/24 08:04> 43-year-old female brought to the ER today from her home by EMS after an intentional ingestion of Seroquel (approximately 350 mg) and alcohol at approximately 10:30 a.m. or 11:00 p.m. in 10 to the ingestion is a bit clear and the patient is evasive and intoxication at this time so difficult to get clear handle. However she did send a text to her family telling them that she love them, in the event that she might not wake up in the morning. This suggests that patient was at least thinking about the potential lethal affects of her ingestion, even though when I ask her directly, she says that she was not actually trying to commit suicide. Will need psychiatric reassessment in the morning once she is through the peak of her Seroquel and alcohol intoxication Seroquel can have potential affects including hypotension, seizures, decreased mental status, as well as prolonged QT. poison center recommends repeating a 2nd EKG 2 hours after the 1st an observation tele at least 6 hours out from ingestion. Laboratory workup shows blood alcohol level of 0.05. Tylenol and salicylate levels are undetectable. CBC is normal. Kidney function is normal. Potassium mildly low at 3.3. Calcium normal. Magnesium normal at 1.8. Liver function tests are normal. Initial EKG shows normal sinus rhythm without any ischemia. Normal QTC. Second EKG obtained at 1:32 a.m., approximately 2 hours after the 1st EKG and roughly 3 hours after ingestion shows sinus rhythm. No QT lip prolongation. No QRS widening. No ischemia. No arrhythmia. black off worker shows sinus rhythm There was reported hypotension on her EMS blood pressure reading but has been normotensive since arrival here in the ER. She did receive 1 L of IV fluids. She was observed here in the ER until 4:00 a.m. and remained with normal blood pressure and pulse. QT remain normal. She was drowsy but protecting her airway. No seizure activity. At this point she was medically cleared (past the point of high risk for severe complications of Seroquel ingestion) in consultation with the [place] [facility]. At this point with reasonable clinical confidence that think patient is this medically clear for mental health evaluation when she is awake enough to be conversant Of note, during initial evaluation, patient was not able ride urine sample (missed the collection device). Urine drus screen and UPT have not been obtained yet. A telehealth assessment occurred and I did speak with a psychiatrist who actually did not directly communicate with the patient. A another member of his team talked with her directly. The psychiatrist's recommendation was to look for inpatient placement. He states that the patient feels okay to return home but seeing that she had did take an overdose of Seroquel and had some alcohol and apparently some kind of note to her mother that she was suicidal, he stated that it might be best to arrange for inpatient evaluation and treatment. I went to relay these findings with the patient who states that she has never done anything like this in the past. She states that she took the extra medicine because she wanted to sleep. I was not sure that there was collateral information from family members so I contacted the patient's mother directly who stated that the patient did state that she just wanted to sleep and did not want to wake up. It was not specifically a communications stating that she wanted to end her life. Mother tells me that she wants to take her home and is trusting that everything will will work well at home and that the patient will not harm herself. The patient herself states that that is what she wants to do and that this was not an attempt to end her life. She also states that she feels that some kind of inpatient setting would be more harmful than helpful. It appears to me that the patient is being very honest and after talking with family I can see that she has a good support system around her. I am discharging her home and advised her to return if worsening. <Sg Conde MD - Last Filed: 05/05/24 11:25> Lab Data Labs: Lab Results 05/04/24 05/04/24 05/04/24 Range/Units 23:44 23:46 Unknown WBC 10.37 (4.50-11.00) K/uL RBC 4.26 (4.00-5.20) m/uL Hgb 13.8 (12.0-16.0) gm/dL Hct 41.4 (33.0-51.0) % MCV 97 (80-100) fL MCH 32 (26-34) pg MCHC 33 (32-36) gm/dL RDW Coeff of Juan 12.8 (11.5-15.5) % Plt Count 298 (140-440) K/uL Neut % (Auto) 49.7 (42.0-72.0) % Lymph % (Auto) 38.3 (20-44) % Cook % (Auto) 8.0 (0.0-11.0) % Eos % (Auto) 3.0 (0.0-7.0) % Baso % (Auto) 0.3 (0.0-3.0) % Neut # (Auto) 5.16 (1.7-7.0) K/uL Lymph # (Auto) 3.97 H (0.90-2.90) K/uL Cook # (Auto) 0.80 (0.00-0.90) K/UL Eos # (Auto) 0.31 (0.00-0.50) K/uL Baso # (Auto) 0.03 (0.00-0.30) K/uL Abs Immat Gran (auto) 0.07 (0.00-0.30) K/uL Imm/Tot Granulo (auto) 0.7 % VBG pH 7.463 H (7.32-7.43) VBG pCO2 34 L (40-50) mmHG VBG pO2 40.2 (25-47) mmHG VBG HCO3 25 (21-28) mmol/L Sodium 136 (135-149) mmol/L Potassium 3.3 L (3.6-5.1) mmol/L Chloride 103 (96-114) mmol/L Carbon Dioxide 22 (20-32) mmol/L Anion Gap 11 (7-15) mEq/L BUN 12 (5-24) mg/dL Creatinine 0.6 (0.5-1.5) mg/dL Estimated GFR 113 ml/min Glucose 92 (60-115) mg/dL Lactate 2.6 H (0.5-1.9) mmol/L Calcium 9.1 (8.4-10.6) mg/dL Magnesium 1.8 (1.5-2.6) mg/dL Total Bilirubin 0.3 (0.1-1.5) mg/dL AST 34 (12-35) U/L ALT 20 (4-35) U/L Alkaline Phosphatase 88 (40-150) U/L Total Protein 6.4 (6.0-8.3) g/dL Albumin 4.0 (3.3-5.0) g/dL Urine Color Yellow (Yellow) Urine Appearance Clear (Clear) Urine pH 6.0 (5.0-8.5) Ur Specific [place] 1.015 (1.000-1.030) Urine Protein Negative (Negative) Urine Glucose (UA) Negative (Negative) Urine Ketones Negative (Negative) Urine Blood Negative (Negative) Urine Nitrite Negative (Negative) Urine Bilirubin Negative (Negative) Urine Urobilinogen 0.2 (0.2-1.0) Ur Leukocyte Esterase Negative (Negative) Urine RBC 0-2 (0-2) Urine WBC 0-2 (0-5) Ur Squamous Epith Cells Few (None-Few) Urine Bacteria None (None) Urine HCG, Qual Negative (Negative) Salicylates < 1.0 L (1.0-10) mg/dL Urine Opiates Screen Negative (Negative) Ur Oxycodone Screen Negative (Negative) Urine Methadone Screen Negative (Negative) Acetaminophen < 10.0 L (10.0-30.0) ug/mL Ur Barbiturates Screen Negative (Negative) U Tricyclic Antidepress POSITIVE A (Negative) Ur Phencyclidine Scrn Negative (Negative) Ur Amphetamines Screen Negative (Negative) U Methamphetamines Scrn Negative (Negative) U Benzodiazepines Scrn Negative (Negative) Urine Cocaine Screen POSITIVE A (Negative) U Marijuana (THC) Screen POSITIVE A (Negative) Ur Drug Screen Comment See Note Ethyl Alcohol 0.05 H (0.01-0.03) % SARS-CoV-2 (PCR) (Negative) 05/05/24 Range/Units 00:30 WBC (4.50-11.00) K/uL RBC (4.00-5.20) m/uL Hgb (12.0-16.0) gm/dL Hct (33.0-51.0) % MCV (80-100) fL MCH (26-34) pg MCHC (32-36) gm/dL RDW Coeff of Juan (11.5-15.5) % Plt Count (140-440) K/uL Neut % (Auto) (42.0-72.0) % Lymph % (Auto) (20-44) % Cook % (Auto) (0.0-11.0) % Eos % (Auto) (0.0-7.0) % Baso % (Auto) (0.0-3.0) % Neut # (Auto) (1.7-7.0) K/uL Lymph # (Auto) (0.90-2.90) K/uL Cook # (Auto) (0.00-0.90) K/UL Eos # (Auto) (0.00-0.50) K/uL Baso # (Auto) (0.00-0.30) K/uL Abs Immat Gran (auto) (0.00-0.30) K/uL Imm/Tot Granulo (auto) % VBG pH (7.32-7.43) VBG pCO2 (40-50) mmHG VBG pO2 (25-47) mmHG VBG HCO3 (21-28) mmol/L Sodium (135-149) mmol/L Potassium (3.6-5.1) mmol/L Chloride (96-114) mmol/L Carbon Dioxide (20-32) mmol/L Anion Gap (7-15) mEq/L BUN (5-24) mg/dL Creatinine (0.5-1.5) mg/dL Estimated GFR ml/min Glucose (60-115) mg/dL Lactate (0.5-1.9) mmol/L Calcium (8.4-10.6) mg/dL Magnesium (1.5-2.6) mg/dL Total Bilirubin (0.1-1.5) mg/dL AST (12-35) U/L ALT (4-35) U/L Alkaline Phosphatase (40-150) U/L Total Protein (6.0-8.3) g/dL Albumin (3.3-5.0) g/dL Urine Color (Yellow) Urine Appearance (Clear) Urine pH (5.0-8.5) Ur Specific [place] (1.000-1.030) Urine Protein (Negative) Urine Glucose (UA) (Negative) Urine Ketones (Negative) Urine Blood (Negative) Urine Nitrite (Negative) Urine Bilirubin (Negative) Urine Urobilinogen (0.2-1.0) Ur Leukocyte Esterase (Negative) Urine RBC (0-2) Urine WBC (0-5) Ur Squamous Epith Cells (None-Few) Urine Bacteria (None) Urine HCG, Qual (Negative) Salicylates (1.0-10) mg/dL Urine Opiates Screen (Negative) Ur Oxycodone Screen (Negative) Urine Methadone Screen (Negative) Acetaminophen (10.0-30.0) ug/mL Ur Barbiturates Screen (Negative) U Tricyclic Antidepress (Negative) Ur Phencyclidine Scrn (Negative) Ur Amphetamines Screen (Negative) U Methamphetamines Scrn (Negative) U Benzodiazepines Scrn (Negative) Urine Cocaine Screen (Negative) U Marijuana (THC) Screen (Negative) Ur Drug Screen Comment Ethyl Alcohol (0.01-0.03) % SARS-CoV-2 (PCR) Negative SARS-CoV-2 (Negative) <Alcides Reilly MD - Last Filed: 05/05/24 08:04> Lab Results 05/04/24 05/04/24 05/04/24 Range/Units 23:44 23:46 Unknown WBC 10.37 (4.50-11.00) K/uL RBC 4.26 (4.00-5.20) m/uL Hgb 13.8 (12.0-16.0) gm/dL Hct 41.4 (33.0-51.0) % MCV 97 (80-100) fL MCH 32 (26-34) pg MCHC 33 (32-36) gm/dL RDW Coeff of Juan 12.8 (11.5-15.5) % Plt Count 298 (140-440) K/uL Neut % (Auto) 49.7 (42.0-72.0) % Lymph % (Auto) 38.3 (20-44) % Cook % (Auto) 8.0 (0.0-11.0) % Eos % (Auto) 3.0 (0.0-7.0) % Baso % (Auto) 0.3 (0.0-3.0) % Neut # (Auto) 5.16 (1.7-7.0) K/uL Lymph # (Auto) 3.97 H (0.90-2.90) K/uL Cook # (Auto) 0.80 (0.00-0.90) K/UL Eos # (Auto) 0.31 (0.00-0.50) K/uL Baso # (Auto) 0.03 (0.00-0.30) K/uL Abs Immat Gran (auto) 0.07 (0.00-0.30) K/uL Imm/Tot Granulo (auto) 0.7 % VBG pH 7.463 H (7.32-7.43) VBG pCO2 34 L (40-50) mmHG VBG pO2 40.2 (25-47) mmHG VBG HCO3 25 (21-28) mmol/L Sodium 136 (135-149) mmol/L Potassium 3.3 L (3.6-5.1) mmol/L Chloride 103 (96-114) mmol/L Carbon Dioxide 22 (20-32) mmol/L Anion Gap 11 (7-15) mEq/L BUN 12 (5-24) mg/dL Creatinine 0.6 (0.5-1.5) mg/dL Estimated GFR 113 ml/min Glucose 92 (60-115) mg/dL Lactate 2.6 H (0.5-1.9) mmol/L Calcium 9.1 (8.4-10.6) mg/dL Magnesium 1.8 (1.5-2.6) mg/dL Total Bilirubin 0.3 (0.1-1.5) mg/dL AST 34 (12-35) U/L ALT 20 (4-35) U/L Alkaline Phosphatase 88 (40-150) U/L Total Protein 6.4 (6.0-8.3) g/dL Albumin 4.0 (3.3-5.0) g/dL Urine Color Yellow (Yellow) Urine Appearance Clear (Clear) Urine pH 6.0 (5.0-8.5) Ur Specific [place] 1.015 (1.000-1.030) Urine Protein Negative (Negative) Urine Glucose (UA) Negative (Negative) Urine Ketones Negative (Negative) Urine Blood Negative (Negative) Urine Nitrite Negative (Negative) Urine Bilirubin Negative (Negative) Urine Urobilinogen 0.2 (0.2-1.0) Ur Leukocyte Esterase Negative (Negative) Urine RBC 0-2 (0-2) Urine WBC 0-2 (0-5) Ur Squamous Epith Cells Few (None-Few) Urine Bacteria None (None) Urine HCG, Qual Negative (Negative) Salicylates < 1.0 L (1.0-10) mg/dL Urine Opiates Screen Negative (Negative) Ur Oxycodone Screen Negative (Negative) Urine Methadone Screen Negative (Negative) Acetaminophen < 10.0 L (10.0-30.0) ug/mL Ur Barbiturates Screen Negative (Negative) U Tricyclic Antidepress POSITIVE A (Negative) Ur Phencyclidine Scrn Negative (Negative) Ur Amphetamines Screen Negative (Negative) U Methamphetamines Scrn Negative (Negative) U Benzodiazepines Scrn Negative (Negative) Urine Cocaine Screen POSITIVE A (Negative) U Marijuana (THC) Screen POSITIVE A (Negative) Ur Drug Screen Comment See Note Ethyl Alcohol 0.05 H (0.01-0.03) % SARS-CoV-2 (PCR) (Negative) 05/05/24 Range/Units 00:30 WBC (4.50-11.00) K/uL RBC (4.00-5.20) m/uL Hgb (12.0-16.0) gm/dL Hct (33.0-51.0) % MCV (80-100) fL MCH (26-34) pg MCHC (32-36) gm/dL RDW Coeff of Juan (11.5-15.5) % Plt Count (140-440) K/uL Neut % (Auto) (42.0-72.0) % Lymph % (Auto) (20-44) % Cook % (Auto) (0.0-11.0) % Eos % (Auto) (0.0-7.0) % Baso % (Auto) (0.0-3.0) % Neut # (Auto) (1.7-7.0) K/uL Lymph # (Auto) (0.90-2.90) K/uL Cook # (Auto) (0.00-0.90) K/UL Eos # (Auto) (0.00-0.50) K/uL Baso # (Auto) (0.00-0.30) K/uL Abs Immat Gran (auto) (0.00-0.30) K/uL Imm/Tot Granulo (auto) % VBG pH (7.32-7.43) VBG pCO2 (40-50) mmHG VBG pO2 (25-47) mmHG VBG HCO3 (21-28) mmol/L Sodium (135-149) mmol/L Potassium (3.6-5.1) mmol/L Chloride (96-114) mmol/L Carbon Dioxide (20-32) mmol/L Anion Gap (7-15) mEq/L BUN (5-24) mg/dL Creatinine (0.5-1.5) mg/dL Estimated GFR ml/min Glucose (60-115) mg/dL Lactate (0.5-1.9) mmol/L Calcium (8.4-10.6) mg/dL Magnesium (1.5-2.6) mg/dL Total Bilirubin (0.1-1.5) mg/dL AST (12-35) U/L ALT (4-35) U/L Alkaline Phosphatase (40-150) U/L Total Protein (6.0-8.3) g/dL Albumin (3.3-5.0) g/dL Urine Color (Yellow) Urine Appearance (Clear) Urine pH (5.0-8.5) Ur Specific [place] (1.000-1.030) Urine Protein (Negative) Urine Glucose (UA) (Negative) Urine Ketones (Negative) Urine Blood (Negative) Urine Nitrite (Negative) Urine Bilirubin (Negative) Urine Urobilinogen (0.2-1.0) Ur Leukocyte Esterase (Negative) Urine RBC (0-2) Urine WBC (0-5) Ur Squamous Epith Cells (None-Few) Urine Bacteria (None) Urine HCG, Qual (Negative) Salicylates (1.0-10) mg/dL Urine Opiates Screen (Negative) Ur Oxycodone Screen (Negative) Urine Methadone Screen (Negative) Acetaminophen (10.0-30.0) ug/mL Ur Barbiturates Screen (Negative) U Tricyclic Antidepress (Negative) Ur Phencyclidine Scrn (Negative) Ur Amphetamines Screen (Negative) U Methamphetamines Scrn (Negative) U Benzodiazepines Scrn (Negative) Urine Cocaine Screen (Negative) U Marijuana (THC) Screen (Negative) Ur Drug Screen Comment Ethyl Alcohol (0.01-0.03) % SARS-CoV-2 (PCR) Negative SARS-CoV-2 (Negative) <Sg Conde MD - Last Filed: 05/05/24 11:25> ECG Data Attestation: I personally reviewed and interpreted this ECG as follows: <Alcides Reilly MD - Last Filed: 05/05/24 08:04> Interpretation: Normal sinus rhythm Rate: 76 WV: 160 QRS axis: Normal axis ST segment/T wave: Artifact in leads V1 and V2. No ST segment elevation or depression QTc: 447 EKG 2. 132am Normal sinus rhythm Rate: 68 WV: 170 QRS axis: Normal axis. No pathologic Q-waves. ST segment/T wave: No ST segment elevation or depression. Artifact from previous EKG is not present on this EKG QTc: 463 <Alcides Reilly MD - Last Filed: 05/05/24 08:04> Discharge Plan Discharge Clinical Impression: Overdose <Alcides Reilly MD - Last Filed: 05/05/24 08:04> Patient Disposition: Home w/ Parent or Adult <Alcides Reilly MD - Last Filed: 05/05/24 08:04> Condition: Improved <Alcides Reilly MD - Last Filed: 05/05/24 08:04> Additional Instructions: Take medications only as prescribed and avoid using street drugs. Follow up with MD for ongoing management and consider options for therapy also. Return if symptoms are recurrent or worsening. <Alcides Reilly MD - Last Filed: 05/05/24 08:04> Prescriptions: No Action No Known Home Medications <Alcides Reilly MD - Last Filed: 05/05/24 08:04> Follow Up/Referrals: Remedios Contreras MD [Primary Care Provider] - <Alcides Reilly MD - Last Filed: 05/05/24 08:04> Stand Alone Forms: [employer] Info Instructions <Alcides Reilly MD - Last Filed: 05/05/24 08:04>
[2024-05-05 00:16] LABS: Chloride* 103 mmol/L (96-114); Potassium* 3.3 mmol/L (3.6-5.1); Sodium* 136 mmol/L (135-149)
[2024-05-05 00:18] LABS: Alanine Aminotransferase* 20 U/L (4-35); Alkaline Phosphatase* 88 U/L (40-150); Anion Gap 11 mEq/L (7-15); Aspartate Amino Transferase* 34 U/L (12-35); Bilirubin Total* 0.3 mg/dL (0.1-1.5); Blood Urea Nitrogen* 12 mg/dL (5-24); Carbon Dioxide* 22 mmol/L (20-32); Creatinine* 0.6 mg/dL (0.5-1.5); Estimated Glomerular Filt Rate 113 ml/min; Total Protein* 6.4 g/dL (6.0-8.3)
[2024-05-05 00:19] LABS: Calcium* 9.1 mg/dL (8.4-10.6); Ethanol* 0.05 % (0.01-0.03); Glucose* 92 mg/dL (60-115); Magnesium* 1.8 mg/dL (1.5-2.6)
[2024-05-05 00:20] LABS: Acetaminophen* < 10.0 ug/mL (10.0-30.0); Salicylate* < 1.0 mg/dL (1.0-10)
--- OUTSIDE RECORDS SUMMARY | 2024-05-05 00:41 | XMS_ITS | Clinical Summary ---
Author Organization [facility] Address [address] [place] [id number] Care Team Providers Care Mems Process Engineer Name Role Phone Remedios Contreras MD Primary [...] use. 1 Each 03/05/2024 Active azithromycin (Zithromax Z-Deandre) 250 mg tabletIndicatio ns:Acute recurrent maxillary sinusitis [...] Type Department Care Team Description 03/27/[address] [address] Lynnette Temple PA Refill Request (Albuterol Hfa) 03/23/2024 12:10 PM SENIOR RESEARCH ENGINEER Office Visit [facility] [address] [place] [address] Remedios Contreras MD Cough (Influenza A 2 weeks ago, Tamiflu. Fever broke for 1 day and came back, Was put on pred and inhaler. Was feeling better. Now all stuffed up, coughing stuff up. Using the inhaler./Wonders if now if sinus infection./Tested Tuesday and all were negative.) 03/23/2024 Travel 03/12/2024 2:15 PM SENIOR RESEARCH ENGINEER Office Visit [facility] [address] [place] [address] Malou Bustos, [facility] Individual Therapy 03/12/2024 Travel 03/05/2024 2:45 PM SENIOR RESEARCH ENGINEER Ancillary Procedure [facility] [address] [place] [address] 03/05/2024 1:35 PM SENIOR RESEARCH ENGINEER Office Visit [address] [address] Lynnette Temple PA Concerns (Cough is non-productive. Has had Influenza A positive test. Has had Tamiflu. Currently using Mucenex, honey, Benzonate pearls ) 03/05/2024 Travel 03/05/2024 Telephone [facility] [address] [place] [address] Remedios Contreras MD Appointment Request (Appointment) 03/05/2024 Telephone [facility] [address] [place] [phone] Malou Bustos LICSW Late Cancel Appointment (03/05/24 @ 2:15 PM) 02/27/2024 E-Visit [facility] [address] [place] [address] Remedios Contreras MD Sick 02/27/2024 Nurse Triage [facility] [address] [place] [address] Remedios Contreras MD Cough; Weak 02/20/2024 2:15 PM SENIOR RESEARCH ENGINEER Office Visit [facility] [address] [place] [phone] Malou Bustos LICSW Individual Therapy; Trmt Plan 02/20/2024 Travel 02/16/2024 Orders Only [facility] Scanner 1 scan: (1-Ord) [facility], STEROID INJ TO BILAT CARPAL TUNNEL , 02/16/2024 from Last 3 Months Immunizations Immunization Administration Dates Next Due COVID-19 vaccine (Pfizer-Bio NTech 30mcg/0.3mL) 12YO+ BIVALENT PF, MDV 02/10/2022 COVID-19 vaccine (Telogis-Bio NTech 30mcg/0.3mL) 12YO+ FILIBERTO-SUCROSE PF, MDV 03/02/2021 COVID-19 vaccine (Telogis-BioNTAdlogix 30mcg/0.3mL) P F, MDV 08/28/2020,08/07/2020 Influenza, IIV4 [...] on file Legal Sex Female 6:15 AM SENIOR RESEARCH ENGINEER Gender Identity Not on file Sexual Orientation Not on file Obstetrics History Para Term AB IAB SAB Ectopic Multiple Livin g Live Births 1 1 1 Date Outcome GA Total Labor Labor/2nd/3rd Weight Sex Type Anes PTL Mehreen A1 A5 Name Clin Term Last Filed Vital Signs Vital Sign Reading Time Taken Comments Blood Pressure 120/89 03/23/2024 12:35 PM SENIOR RESEARCH ENGINEER Pulse 107 03/23/2024 12:35 PM SENIOR RESEARCH ENGINEER Temperature 36.5 C (97.7 F) 03/05/2024 1:36 PM SENIOR RESEARCH ENGINEER Respiratory Rate - - Oxygen Saturation 97% 03/23/2024 12:35 PM SENIOR RESEARCH ENGINEER Inhaled Oxygen Concentration - - Weight 54.9 kg (121 lb) 03/23/2024 12:35 PM SENIOR RESEARCH ENGINEER Height 164.5 cm (5' 4.75) 04/05/2023 10:54 AM C Body Mass Index 20.29 04/05/2023 10:54 AM SENIOR RESEARCH ENGINEER Plan of Treatment Upcoming Encounters Date Type Department Care Team (Late st Contact Info) Description 05/14/2024 2:15 PM CDT Office Visit [address] [place] [phone] Malou Bustos LICSW [address] [place] [address] 05/21/2024 1:30 PM CDT Office Visit [address] [phone] Malou Bustos LICSW [address] [place] [address] 05/28/2024 2:15 PM CDT Office Visit [address] [phone] Malou Bustos LICSW [address] [place] [address] 06/04/2024 2:15 PM CDT Office Visit [address] [phone] Malou Bustos LICSW [address] [place] [address] 06/11/2024 2:15 PM CDT Office Visit [address] [phone] Malou Bustos, [facility] [address] [facility] [address] 06/18/2024 2:15 PM CDT Office Visit [facility] [address] [place] [phone] Malou Bustos [facility] [address] [place] [address] 06/25/2024 2:15 PM CDT Office Visit [facility] [address] [place] [phone] Malou Bustos [facility] [address] [place] [address] 07/02/2024 2:15 PM CDT Office Visit [facility] [address] [place] [phone] Malou Bustos [facility] [address] [place] [address] Health Maintenance Due Date Last Done Comments [...] PA AND LATERAL STAT 03/05/2024 2:30 PM SENIOR RESEARCH ENGINEER Influenza SCAN-OPERATIVE/PROC EDURE REPORT 02/16/2024 12:00 AM SENIOR RESEARCH ENGINEER XR MAMMO ELBA BILAT SCREEN Routine 08/31/2023 8:15 AM CDT Routine adult health maintenance LC HIV-1/O/2, 4TH GENERATION Routine 02/25/2022 3:46 PM SENIOR RESEARCH ENGINEER Screen for STD (sexually transmitted disease) LC HCV ANTIBODY RFX TO QUANT PCR Routine 02/25/2022 3:46 PM SENIOR RESEARCH ENGINEER Screen for STD (sexually transmitted disease) TEXTILE DESIGNS SALES REPRESENTATIVE THIN PREP PAP SCREEN IMAGED Routine 04/30/2016 1:18 PM CDT Screening for malignant neoplasm of cervix LIPID PANEL W REFLEX MEASURED LDL Routine 04/30/2016 1:03 PM CDT Lipid screening from Last 3 Months or Most Recently Relevant to Health Maintenance Results * XR CHEST 2 VIEWS PA AND LATERAL (03/05/2024 2:30 PM SENIOR RESEARCH ENGINEER) Anatomical Region Laterality Modality CHEST, THORAX, Lung, HEART Compu theresa Radiography 03/05/2024 2:35 PM SENIOR RESEARCH ENGINEER Narrative 03/05/2024 2:35 PM SENIOR RESEARCH ENGINEER For Patients: As a result of the [...] ult * SCAN-OPERATIVE/PROCEDURE REPORT (02/16/2024 12:00 AM SENIOR RESEARCH ENGINEER) us Scanner OTHER Final Result * XR [...] care provider. XR MAMMO ELBA BILAT SCREEN [[id number]] CLINICAL HISTORY: This is an asymptomatic 43 y.o. patient. INDICATION FOR EXAM: Mammogram Screening. TECHNIQUE: CC & MLO views were obtained. This study was evaluated with the assistance of Computer-Aided Detection. Breast Tomosynthesis was used in interpretation. COMPARISON FILM: Yes 11/03/20 [facility] 08/14/18 [facility] [employer] FINDINGS: The breasts are heterogeneously dense, which may obscure small masses. There are no dominant masses, suspicious micro calcifications or areas of architectural distortion. us Remedios Contreras MD MAMMO Final Result * LC HCV ANTIBODY RFX TO QUANT PCR (02/25/2022 3:46 PM SENIOR RESEARCH ENGINEER) HCV Ab <0.1 0.0 - 0.9 s/co ratio 03/02/2022 6:08 AM SENIOR RESEARCH ENGINEER [facility] Blood BLOOD SPECIMEN / Unknown Venipuncture / Unknown 02/25/2022 3:46 PM SENIOR RESEARCH ENGINEER 02/25/2022 3:47 PM SENIOR RESEARCH ENGINEER Narrative [facility] - 03/02/2022 6:08 AM SENIOR RESEARCH ENGINEER Performed at: [address] [place] [address] [address] [place], [place] [id number] Inventory Planner: See Mcgee MD, Phone: [phone] Remedios Contreras MD LABORATORY Final Result [facility] [address] [place] [address], * LC HIV-1/O/2, 4TH GENERATION (02/25/2022 3:46 PM SENIOR RESEARCH ENGINEER) HIV Scr 4th Gen Non Reactive Non Reactive 03/02/2022 4:07 AM SENIOR RESEARCH ENGINEER [facility] ([facility]) Comment: HIV Negative HIV-1/HIV-2 antibodies and HIV-1 p24 antigen were NOT detected. There is no laboratory evidence of HIV infection. Blood BLOOD SPECIMEN / Unknown Venipuncture / Unknown 02/25/2022 3:46 PM SENIOR RESEARCH ENGINEER 02/25/2022 3:47 PM SENIOR RESEARCH ENGINEER Narrative [facility] ([facility]) - 03/02/2022 4:07 AM SENIOR RESEARCH ENGINEER Performed at: [address] [place] [id number] Inventory Planner: See Mcgee MD, Phone: [phone] Remedios Contreras MD LABORATORY Final Result [facility] ([facility]) [address] [place] [address], * TEXTILE DESIGNS SALES REPRESENTATIVE THIN PREP PAP SCREEN IMAGED (04/30/2016 1:18 PM CDT) Pathologist [facility] Case Report Gynecologic Cytology Report Case: [id number] Authorizing Provider: Remedios Contreras, Collected: 04/30/2016 1318 Ordering Location: [facility] Received: 04/30/2016 1319 Clinic First Screen: Angela Esparza Rescreen: Salazar Melgoza Specimen: TEXTILE DESIGNS SALES REPRESENTATIVE ThinPrep Vial Screening, Cervical 05/07/2016 2:33 PM CDT [facility] INTERPRETATION/ RESULT NEGATIVE FOR INTRAEPITHELIAL LESION OR MALIGNANCY (NIL) (none) 05/07/2016 2:33 PM CDT [facility] IMEN ADEQUACY Satisfactory for evaluation Endocervical component present 05/07/2016 2:33 PM CDT [facility] HPV REQUEST HPV if ASCUS 05/07/2016 2:33 PM CDT [facility] Date of LMP 04/09/2016 05/07/2016 2:33 PM CDT [facility] Last Pap Date 05/13/11 05/07/2016 2:33 PM CDT [facility] Last Pap Result NIL 7 2:33 PM CDT [facility] Abnormal Pap or [place] Bx in last 5 years No 05/07/2016 2:33 PM CDT [facility] Menstrual Status Regular Periods 05/07/2016 2:33 PM CDT [facility] [place] Bx Done Today No 05/07/2016 2:33 PM CDT [facility] Additional Information None given 05/07/2016 2:33 PM CDT [facility] Automated Review Successful 05/07/2016 2:33 PM CDT [facility] Comment:Specimen processed s uccessfully by automated abattoir manager device, ThinPrep Imaging System, [employer] Note The pap test is a screening technique, not a diagnostic procedure. It is used primarily to screen for squamous cancers and precursor lesions. Published studies have shown that it is subject to both false negative and false positive results. The pap test should not be used as the sole means to diagnose or exclude pre-malignant and malignant lesions. Interpreted at [facility] ([facility] Lab, [facility], [facility], [facility], [facility], [facility], [facility]) 05/07/2016 2:33 PM CDT [facility] Other (Cervical) 04/30/2016 1:18 PM CDT 04/30/2016 1:19 PM CDT us Remedios Contreras MD PATHOLOGY/CYTOLOGY Fi nal Result [facility] [address] [place] [address], [place] * LIPID PANEL W REFLEX MEASURED LDL (04/30/2016 1:03 PM CDT) CHOLESTEROL,TOTAL 163 100 - 199 mg/dL 04/30/2016 2:02 PM CDT [facility] TRIGLYCERIDES 83 <150 mg/dL 04/30/2016 2:02 PM CDT [facility] HDL CHOLESTEROL 79 >40 mg/dL 7 2:02 PM CDT [facility] NON-HDL CHOLESTEROL 84 <145 mg/dl 04/30/2016 2:02 PM CDT [facility] CHOL/HDL RATIO 2.06 <4.50 04/30/2016 2:02 PM CDT [facility] LDL CHOLESTEROL 67 <=130 mg/dL 04/30/2016 2:02 PM CDT [facility] PATIENT STATUS FASTING 04/30/2016 2:02 PM CDT [facility] Blood BLOOD SPECIMEN / Unknown Venipuncture / Unknown 04/30/2016 1:03 PM CDT 04/30/2016 1:03 PM CDT us Remedios Contreras MD CHEMISTRY Final Result [facility] [address] [place] [address], from Last 3 Months or Most Recently Relevant to Health Maintenance Insurance [facility] [address] [place] [address] [employer] [address] [phone] [facility] * Guarantor: BRNUO YANEZ Account Type Relation to Patient Date of Phone Billing Address Occ Health/Alexandre [place] [address] Care Teams Mems Process Engineer Relationship Specialty Start Date End Date Remedios Contreras MD [address] [place] [address] PCP - General 11/11/05
--- OUTSIDE RECORDS SUMMARY | 2024-05-05 00:41 | XMS_ITS | Clinical Summary ---
Author Organization [facility] Address [address] [place] [address] Care Team Providers Care Product Development Technician Name Role Phone Unavailable Primary Care Provider Unavailabl e Source Comments Patient records contain information from all sites at [facility]. For routine questions regarding patient records, call [phone] during business hours, M-F 8:00 AM - 5:00 PM Central Time. Record requests for emergency care only can be directed to [phone] at any time.[facility] Allergies Active Allergy Reactions Criticality Noted Date [...] blood clot. 108 tablet 01/05/2023 2:24 PM VOLCANOLOGY TEACHER 3 Active oxyCODONE (ROXICODONE) 5 mg immediate release tabletIndicatio ns:Acute Pain Exception Take 1 tablet (5 mg total) by mouth every 4 (four) hours as needed for severe pain or score 7-10 of 10 Indication: Acute Pain Exception. 30 tablet 01/05/2023 2:24 PM VOLCANOLOGY TEACHER 3 Active traMADoL (ULTRAM) 50 mg tabletIndicatio ns:Acute Pain Exception Take 1 tablet (50 mg total) by mouth every 6 (six) hours as needed for moderate pain or score 4-6 of 10 Indications: Acute Pain Exception. 20 tablet 01/05/2023 2:24 PM VOLCANOLOGY TEACHER 3 Active prochlorperazin e (COMPAZINE) 5 mg tablet Take 1 tablet (5 mg total) by mouth every 6 (six) hours as needed for nausea or vomiting. 20 tablet 01/05/2023 2:24 PM VOLCANOLOGY TEACHER 3 Active LORazepam (ATIVAN) 0.5 mg tablet [...] your living situation today? I have a [facility] place to live 07/26/2022 Comments No Sex and Gender Information Value Date Recorded Sex Assigned at Female 07/26/2022 7:48 PM CDT Legal Sex Female 3:43 PM VOLCANOLOGY TEACHER Gender Identity Female 07/26/2022 7:48 PM CDT Sexual Orientation Straight 07/26/2022 7: 48 PM CDT Last Filed Vital Signs Vital Sign Reading Time Taken Comments Blood Pressure 123/86 01/05/2023 3:00 PM VOLCANOLOGY TEACHER Pulse 81 01/05/2023 3:00 PM VOLCANOLOGY TEACHER Temperature 36.7 C (98.1 F) 01/05/2023 12:00 PM VOLCANOLOGY TEACHER Respiratory Rate 12 01/05/2023 1:00 PM VOLCANOLOGY TEACHER Oxygen Saturation 91% 01/05/2023 3:00 PM VOLCANOLOGY TEACHER Inhaled Oxygen Concentration - - Weight 58.9 kg (129 lb 13.6 oz) 01/05/2023 6:15 AM VOLCANOLOGY TEACHER Height 163.5 cm (5' 4.37) 01/05/2023 6:15 AM CS T Body Mass Index 22.03 01/05/2023 6:15 AM VOLCANOLOGY TEACHER Plan of Treatment Health Maintenance Due Date [...] this topic Medical Devices Implanted Type Area As400 Programmer Analyst Device Identifier Shelf Expiration Date Model / Serial / Lot Shll Acet Trd Ii Mhl 52e - [id number] Implanted:Qty : 1 on 11/08/2022 by Walker Main M.D. at [facility] Hip Implant Right: Hip [place] 09/22/2027 709-04-52 E / / [id number] Lnr X3 Sangeetha 40 - [id number] Implanted:Qty : 1 on 11/08/2022 by Walker Main M.D. at [facility] Hip Implant Right: Hip [place] 09/12/2027 723-00-40 E / / [id number] Hip Stm Ins Hofst Sz2 36x99 - [id number] Implanted:Qty : 1 on 11/08/2022 by Walker Main M.D. at [facility] Hip Implant Right: Hip [place] 06/16/2027 8112-5734 / / [id number] Scrw Hex 6.5x20 - [id number] Implanted:Qty : 1 on 11/08/2022 by Walker Main M.D. at [facility] Hip Implant Right: Hip [place] 07/16/2027 7820-9966 / / [id number] Scrw Hex 6.5x15 - [id number] Implanted:Qty : 1 on 11/08/2022 by Walker Main M.D. at [facility] Hip Implant Right: Hip [place] 05/30/2027 6152-0827 / / [id number] Hip Stm Slv V40 +0 - [id number] Implanted:Qty : 1 on 11/08/2022 by Walker Main M.D. at [facility] Hip Implant Right: Hip [place] 08/30/2027 6519-T-10 0 / / [id number] Fem Hd Blx +0x40 - [id number] Implanted:Qty : 1 on 11/08/2022 by Walker Main M.D. at [facility] Hip Implant Right: Hip [place] 09/17/2027 6519-1-04 0 / / [id number] Shll Acet Trd Chl 52e - [id number] Implanted:Qty : 1 on 01/05/2023 by Walker Main M.D. at [facility] Hip Implant Left: Hip [place] [id number] 08/31/2027 702-04-52 E / / [id number] Scrw Hex 6.5x20 - [id number] Implanted:Qty : 1 on 01/05/2023 by Walker Main M.D. at [facility] Hip Implant Left: Hip [place] 08/29/2027 3356-3458 / / [id number] Hip Stm Ins Hofst Sz2 36x99 - [id number] Implanted:Qty : 1 on 01/05/2023 by Walker Main M.D. at [facility] Hip Implant Left: Hip [place] 09/23/2027 0845-5985 / / [id number] Fem Hd Blx +0x40 - [id number] Implanted:Qty : 1 on 01/05/2023 by Walker Main M.D. at [facility] Hip Implant Left: Hip [place] 10/30/2027 6519-1-04 0 / / [id number] Hip Stm Slv V40 +4 - [id number] Implanted:Qty : 1 on 01/05/2023 by Walker Main M.D. at [facility] Hip Implant Left: Hip [place] 11/02/2027 6519-T-20 4 / / [id number] Lnr X3 Sangeetha 40 - [id number] Implanted:Qty : 1 on 01/05/2023 by Walker Main M.D. at [facility] Hip Implant Left: Hip [place] 11/04/2027 723-00-40 E / / [id number] Knee Implant-1995 Implanted: (Quantity not on file) Knee Implant Left: Knee Description:Patient stated o nly screws Procedures Procedure Name Priority Date/Time Associated Diagnosis Comments BASIC METABOLIC PANEL, S/P Routine 12/31/2022 9:50 AM VOLCANOLOGY TEACHER Primary Osteoarthritis Hip Left Preoperative Exam from Last 3 Months or Most Recently Relevant to Health Maintenance Results * Basic Metabolic Panel (12/31/2022 9:50 AM VOLCANOLOGY TEACHER) Potassium, S 4.7 3.6 - 5.2 mmol/L 12/31/2022 10:52 AM VOLCANOLOGY TEACHER DTL Sodium, S 138 135 - 145 mmol/L 12/31/2022 10:52 AM VOLCANOLOGY TEACHER DTL Chloride, S 100 98 - 107 mmol/L 12/31/2022 10:52 AM VOLCANOLOGY TEACHER DTL Bicarbonate, S 26 22 - 29 mmol/L 12/31/2022 10:52 AM VOLCANOLOGY TEACHER DTL Anion Gap 12 7 - 15 12/31/2022 10:52 AM VOLCANOLOGY TEACHER DTL BUN (Blood Urea Nitrogen), S 13 6 - 21 mg/dL 12/31/2022 10:52 AM VOLCANOLOGY TEACHER DTL Creatinine 0.68 0.59 - 1.04 mg/dL 12/31/2022 10:52 AM VOLCANOLOGY TEACHER DTL Estimated GFR (eGFR) >90 >=60 mL/min/BSA 12/31/2022 10:52 AM VOLCANOLOGY TEACHER DTL Comment: Estimated GFR calculated using the 2020 CKD_EPI creatinine equation. Calcium, Total, S 9.7 8.6 - 10.0 mg/dL 12/31/2022 10:52 AM VOLCANOLOGY TEACHER DTL Glucose, S 87 70 - 140 mg/dL 12/31/2022 10:52 AM VOLCANOLOGY TEACHER DTL Blood (Blood, Venous) 12/31/2022 9:50 AM VOLCANOLOGY TEACHER 12/31/2022 10:35 AM VOLCANOLOGY TEACHER [facility] LAB BLOOD ADD-ON Final Result [facility] [address] [place] [address], [facility] DTL [facility] [address] [place] [address] from Last 3 Months or Most Recently Relevant to Health Maintenance Insurance [facility] Advance Directives For more information, please contact: [phone] * Full Code (Latest Code Status on [...]
[2024-05-05 01:18] LABS: SARS PCR* Negative SARS-CoV-2 (Negative)
--- NOTE | 2024-05-05 08:05 | ED.NURSE ---
Patient up to the bathroom, left urine sample for UA. Patient moved to room 2 for safe room. Reports feeling ready and willing to participate in mental telehealth evaluation.
[2024-05-05 08:10] LABS: Appearance Urine Clear (Clear); Bilirubin Urine Negative (Negative); Blood Urine Negative (Negative); Color Urine Yellow (Yellow); Glucose Urine Negative (Negative); Ketones Urine Negative (Negative); Leukocyte Esterase Urine Negative (Negative); Nitrite Urine Negative (Negative); Protein Urine Negative (Negative); Specific Gravity Urine 1.015 (1.000-1.030); Urobilinogen Urine 0.2 (0.2-1.0)
--- NOTE | 2024-05-05 08:10 | ED.NURSE ---
Contacted Aj to start telehealth process.
[2024-05-05 08:12] LABS: Ur HCG Qualitative* Negative (Negative)
[2024-05-05 08:17] LABS: RBC Urine 0-2 (0-2); Squamous Epithelial Cell Urine Few (None-Few); WBC Urine 0-2 (0-5)
[2024-05-05 08:21] LABS: Amphetamine Screen Urine Negative (Negative); Barbiturate Screen Urine Negative (Negative); Benzodiazepines Screen Urine Negative (Negative); Cannabinoid Screen Urine POSITIVE (Negative); Cocaine Screen Urine POSITIVE (Negative); Methadone Screen Urine Negative (Negative); Methamphetamines Screen Urine Negative (Negative); Opiate Screen Urine Negative (Negative); Oxycodone Screen Urine Negative (Negative); Phencyclidine Screen Urine Negative (Negative); Tricyclic Antidepressant Urine POSITIVE (Negative)
--- NOTE | 2024-05-05 09:21 | ED.NURSE ---
Patient gave permission to give information to her sister, Talia.
--- NOTE | 2024-05-05 11:19 | ED.NURSE ---
Dr. Conde spoke to patient and patient's mother and feels comfortable with discharge to home.
== END 2024-05-05 11:46 | disposition home or self-care (01) ==
PROVIDERS: Emergency Medicine; Emergency Provider Emergency Medicine Emergency Medical Services; PCP Family Medicine
DX: T43.592A Poisoning by other antipsychotics and neuroleptics, intentional self-harm, initial encounter (principal); T51.92XA Toxic effect of unspecified alcohol, intentional self-harm, initial encounter; I95.2 Hypotension due to drugs; Y92.009 Unspecified place in unspecified non-institutional (private) residence as the place of occurrence of the external cause
CPT/HCPCS: 36415; 80053; 80143; 80179; 80306; 81001; 81025; 82077; 82803; 83605; 83735; 85025; 87635; 93005; 94761; 96360; 99284; 99285; J7030